=== PATIENT | female | born 1975 | race Caucasian/White ===

== ENCOUNTER 2016-11-12 19:40 | Emergency (ER) | payer MEDICARE, OTHER ==
[~2016-11-12] VITALS: Ht 154.9 cm; Wt 86.2 kg
[2016-11-12 19:57] VITALS: BP 130/57
--- NOTE | 2016-11-12 20:37 | NUR ---
TO ER BED 3
--- NOTE | 2016-11-12 20:37 | NUR ---
41Y F BIB FRIEND C/O FLU LIKE SYMPTOMS OF HEADACHE 2/10 PAIN WITH GENERALIZED WEAKNESS X 3 DAYS. PT STATES SHE DID NOT GET FLU VACCINE THIS YEAR .PT DENIES V/D; SKIN IS PINK/WARM/DRY; AAOX4 WITH EVEN AND STEADY GAIT; LUNGS CLEAR BL; HR EVEN AND REGULAR; PT DENIES ANY FEVER, CP, SOB, OR COUGH AT THIS TIME; PATIENT STATES PAIN OF 2/10 AT THIS TIME; VSS; PATIENT POSITIONED FOR COMFORT; HOB ELEVATED; BEDRAILS UP X2; BED DOWN. ER MD MADE AWARE OF PT STATUS.
--- NOTE | 2016-11-12 21:12 | NUR ---
Patient being evaluated by physician DR CHAHAL at bedside.
--- NOTE | 2016-11-12 21:32 | NUR ---
Patient discharged with v/s stable. Written and verbal after care instructions given and explained. Patient alert, oriented and verbalized understanding of instructions. Ambulatory with steady gait. All questions addressed prior to discharge. ID band removed. Patient advised to follow up with PMD. Rx of PHENERGAN DM AND AMOXICILLIN 500MG given. Patient educated on indication of medication including possible reaction and side effects. Opportunity to ask questions provided and answered.
[2016-11-12 21:33] VITALS: BP 127/61
== END 2016-11-12 21:33 | disposition home or self-care (01) ==
LOC: MED 19:40
DX: J20.9 Acute bronchitis, unspecified (principal)

== ENCOUNTER 2019-01-20 11:36 | Emergency (ER) | payer MEDICARE ==
[~2019-01-20] VITALS: Ht 154.9 cm; Wt 87.3 kg
[2019-01-20 11:40] VITALS: BP 119/73
--- NOTE | 2019-01-20 11:48 | NUR ---
PT AMBULATED TO ER BED 01
--- NOTE | 2019-01-20 11:48 | NUR ---
BIB SELF. PT AAO X4 C/O LEFT WRIST PAIN X 3 YEARS. DENIES RECENT TRAUMA OR INJURY. PT STATES L WRIST PAIN 01/14. PT STATES THAT SHE FELL AND LANDED ON KELSI HANDS AND FRACTURED R WRIST X 3 YEARS AGO, EVER SINCE THEN , PT'S L WRIST HAS BEEN HURTING. +MOVEMENT, CAP REFILL < 3 SECS, + SENSATION TO L HAND. HOB UP. BED SIDE RAILS UP X1. ON LOW BED POSITION, LOCKED ER MADE AWARE OF PT STATUS.
--- NOTE | 2019-01-20 12:47 | NUR ---
DR Raoul TINOCO AT BEDSIDE FOR PT EVALUATION
--- NOTE | 2019-01-20 13:04 | NUR ---
CUTTING MACHINE FIXER AT BEDSIDE
--- NOTE | 2019-01-20 13:24 | NUR ---
PT AAO X4. FULL CLEAR SPEECH. CONVERSATES APPROPRIATELY. NO SIGNS AND SYMPTOMS OF DISTRESS NOTED.
--- NOTE | 2019-01-20 13:28 | NUR ---
PT AMBULATED TO THE BATHROOM WITH STEADY GAIT.
[2019-01-20 14:15] VITALS: BP 122/78
--- NOTE | 2019-01-20 14:15 | NUR ---
Patient discharged with v/s stable. Written and verbal after care instructions given and explained. Patient verbalized understanding. Ambulatory with to car. All questions addressed prior to discharge. Advised to follow up with PMD.
== END 2019-01-20 14:15 | disposition home or self-care (01) ==
LOC: MED 11:36
DX: M25.532 Pain in left wrist (principal); J45.909 Unspecified asthma, uncomplicated
CPT/HCPCS: 73110; 99283

== ENCOUNTER 2019-05-28 09:53 | Emergency (ER) | payer MEDICARE ==
[~2019-05-28] VITALS: Ht 154.9 cm; Wt 61.2 kg
--- NOTE | 2019-05-28 09:58 | NUR ---
PT TO ER BED 7
[2019-05-28 10:01] VITALS: BP 108/83
--- NOTE | 2019-05-28 10:06 | NUR ---
43F C/O RIGHT UPPER TOOTHACHE X 2 DAYS WITH SWELLING. DENIES PUS DRAINAGE. PRIOR TO THIS PT STATES BLOOD DRAINING FROM GUMS IN THAT AREA. DENIES FEVER. HAS NOT SEEN DENTIST, STATES NO INSURANCE. TOOK IBUPROFEN TO NO RELIEF. 10/10 ACHING PAIN. A HOLE IN TEETH NOTED AT AFFECTED TOOTH, CARIES IN SURROUNDING TEETH. HX: HYPERCHOLESTEREMIA , ASTHMA RX SIMVASTATIN, ALBUTEROL INH
--- NOTE | 2019-05-28 10:11 | NUR ---
DR. RIGGS EVALUATING PT AT BEDSIDE.
[2019-05-28] MEDS ORDERED: HYDROcodone/APAP 5/325 MG 1 TAB TAB PO ONE (10:45)
[2019-05-28 11:05] VITALS: BP 113/72
--- NOTE | 2019-05-28 11:05 | NUR ---
Patient discharged with v/s stable. Written and verbal after care instructions given and explained. Patient alert, oriented and verbalized understanding of instructions. Ambulatory with steady gait. All questions addressed prior to discharge. ID band removed. Patient advised to follow up with PMD. Rx of [place] and Penicillin VK given. Patient educated on indication of medication including possible reaction and side effects. Opportunity to ask questions provided and answered.
== END 2019-05-28 11:05 | disposition home or self-care (01) ==
LOC: MED 09:53
DX: K02.9 Dental caries, unspecified (principal); J45.909 Unspecified asthma, uncomplicated; E78.00 Pure hypercholesterolemia, unspecified
CPT/HCPCS: 99283

== ENCOUNTER 2019-06-16 21:51 | Emergency (ER) | payer MEDICARE ==
[~2019-06-16] VITALS: Ht 154.9 cm; Wt 86.6 kg
[2019-06-16 21:58] VITALS: BP 108/73
--- NOTE | 2019-06-16 22:03 | NUR ---
PT AMBULATED TO BED #5
--- NOTE | 2019-06-16 22:19 | NUR ---
PT C/O URINARY BURNING, RETENTION, HESITENCY X3 DAYS. DENIES FLANK PAIN. DENIES FEVER. C/O LOWER ABD PAIN UPON URINATION. ABD SOFT ROUND NON TENDER. VSS. PT SITTING IN BED, PLEASANT. NO COMPLAINT OF PAIN AT THIS TIME. MEDHX: ASTHMA, HDL ALLERGIES: DENIES
--- NOTE | 2019-06-16 23:13 | NUR ---
Dr. Lara examining patient.
--- NOTE | 2019-06-16 23:22 | NUR ---
Patient discharged with v/s stable. Written and verbal after care instructions given and explained. Patient alert, oriented and verbalized understanding of instructions. Ambulatory with steady gait. All questions addressed prior to discharge. ID band removed. Patient advised to follow up with PMD. Rx of motrin, pyridum, and cipro given. Patient educated on indication of medication including possible reaction and side effects. Opportunity to ask questions provided and answered.
== END 2019-06-16 23:22 | disposition home or self-care (01) ==
LOC: MED 21:51
DX: R30.0 Dysuria (principal); R35.0 Frequency of micturition; J45.909 Unspecified asthma, uncomplicated; E78.5 Hyperlipidemia, unspecified
CPT/HCPCS: 81002; 81025; 99283